=== PATIENT | male | born 1985 | race Hispanic/Latino ===

== ENCOUNTER 2021-06-15 23:36 | Emergency (ER) | payer SELFPAY ==
[2021-06-16 00:04] LABS: #Lymphocytes 1.5 thou/uL (1.20-3.40); #Monocytes 0.4 thou/uL (0.11-0.59); #Neutrophils 3.1 thou/uL (1.40-6.50); %Basophils 0.9 % (0.0-1.0); %Lymphocytes 29.3 % (21.0-51.0); %Monocytes 8.2 % (0.0-10.0); %Neutrophils 61.6 % (42.0-75.0); Hemoglobin 15.5 g/dL (14.0-18.0); Mean Corpuscular HGB CONC 35.1 g/dL (32.0-36.0); Mean Corpuscular Hemoglobin 31.4 pg (27.0-31.0); Mean Corpuscular Volume 89.4 fL (78.0-98.0); Mean Platelet Volume 8.2 fL (7.4-10.4); Platelet Count 127 thou/uL (130-400); RBC Distribution Width 12.2 % (11.5-14.5); Red Blood Cell (RBC) Count 4.95 mill/uL (4.70-6.10)
[2021-06-16 00:22] LABS: ALT (SGPT) 218 U/L (8-55); AST (SGOT) 172 U/L (5-34); Albumin 3.8 g/dL (3.5-5.0); Alkaline Phosphatase 54 U/L (40-110); Anion Gap 14 mmol/L (10-20); BUN (Urea Nitrogen) 8 mg/dL (8.9-20.6); Bilirubin, Total 0.4 mg/dL (0.2-1.2); Calc. Creatinine Clearance 0 mL/min (70-130); Calcium 8.5 mg/dL (7.8-10.44); Carbon Dioxide 23 mmol/L (22-29); Chloride 103 mmol/L (98-107); Globulin 2.9 g/dL (2.4-3.5); Glucose 104 mg/dL (70-105); Potassium 3.5 mmol/L (3.5-5.1); Protein, Total 6.7 g/dL (6.0-8.3); Sodium 136 mmol/L (136-145)
[2021-06-16] MEDS ORDERED: traZODone HCl 50 MG TAB ONE (00:33)
[2021-06-16] MEDS ORDERED: Dexamethasone 10 MG/ML VIAL ONE (00:33)
[2021-06-16] MEDS ORDERED: Albuterol 200 PUFF (6.7GM INHALER) ONE (00:33)
[2021-06-16 02:11] LABS: SARS-CoV-2 NAA Rapid Test DETECTED (NotDetected)
== END 2021-06-16 00:26 | disposition home or self-care (01) ==
LOC: ERS 23:36
DX: U07.1 COVID-19 (principal); J12.82 Pneumonia due to coronavirus disease 2019; I10 Essential (primary) hypertension; R79.89 Other specified abnormal findings of blood chemistry
CPT/HCPCS: 0240U; 36415; 71045; 80053; 84484; 85025; 85379; 93005; 96374; J1100